=== PATIENT | female | born 1980 | race Hispanic/Latino ===

== ENCOUNTER 2021-09-28 10:00 | Outpatient (CLI) | payer OTHER, SELFPAY ==
--- NOTE | 2021-09-28 10:30 | ECG_ITS ---
Measurements Intervals [place] Rate: 70 P: 45 AL: 121 QRS: 39 QRSD: 95 T: 26 QT: 382 QTc: 413 Interpretive Statements SINUS RHYTHM NO PREVIOUS ECG AVAILABLE FOR COMPARISON Electronically Signed On 09-28-2021 11:21:48 CDT by River Duran M.D.
== END 2021-09-28 10:01 | disposition home or self-care (01) ==
PROVIDERS: PCP Nurse Practitioner Family; Visit Provider Surgery Plastic and Reconstructive Surgery
DX: Z01.810 Encounter for preprocedural cardiovascular examination (principal); L57.4 Cutis laxa senilis
CPT/HCPCS: 36415; 93005

== ENCOUNTER 2021-09-30 01:39 | Day surgery (SDC) | payer OTHER, SELFPAY ==
[2021-09-27 14:28] VITALS: BMI 32.4
--- NOTE | 2021-09-27 14:37 | PC.NURSE ---
Report to the Outpatient Waiting Room, entrance under the green pavilion located off [facility], at time _0600_ on date _[id number]_. OR Time: _0730_. - You and your visitor will be asked a series of questions to screen for COVID 19 for your protection. - Only one visitor is allowed at this time. - The patient visitor is requested to leave or wait in car when not with patient. - A mask is required within the hospital. Patients may have clear liquids (water, carbonated beverages, clear teas, apple juice) until 3 hours prior to surgery with a maximum of 20 ounces. - No food from midnight until time of surgery Take the following medications with a SIP of water the morning of surgery: __None Medications to discontinue per physician Date to take last dose None Please no make-up, nail urdu, hairspray, perfume, deodorant, or body powder the day of surgery. No jewelry (including any body piercings) or valuables the day of surgery, leave them at home. Please take a shower or bath the night before, or the morning of, surgery with an antibacterial soap. Wear comfortable, loose fitting clothing. Children are encouraged to wear pajamas. - Jewelry must be removed prior to entering the operating room. Rings and piercings that are not removed may be cut off. - The hospital will not accept responsibility for valuables. - Please leave all valuables, including medications, at home the day of surgery. If you are going home after surgery, a licensed school bus driver/mechanic must drive you home. - NO public transportation without another adult. - We recommend that an adult stay with you for 24 hours following discharge. - We also recommend that you do not drive, make important decision, drink alcoholic beverages, or take any drugs that were not prescribed by your health care provider for at least 24 hours after your discharge time. Follow any additional instructions given to you from your surgeon. If you or anyone in your household have experienced Covid symptoms in the past week, please notify your surgeon or the nurse liaison at the phone number below for possible testing. Telephone instructions given to __Patient and asked if any additional questions and then verbalized understanding. Patient advised to call surgeon office or pre surgery nurse liaison [phone] if any additional questions.
--- NOTE | 2021-09-29 14:14 | P.PNAN_ITS ---
Anes - Initial Pre Proc Eval Procedure: Operation Date: 09/30/21 07:30 Proposed Procedures p Abdominoplasty, - Giovanny Oneill MD s Liposuction Abdomen and Bilateral Flanks - Giovanny Oneill MD Date/Time: 09/29/21 14:14 Surgeon: Giovanny Oneill MD Pre Op Diagnosis: skin laxity, localized adiposity Patient Data Age: 40 Gender: F Height: 1.6 m Weight: 83.1 kg Allergies Allergy/AdvReac Type Severity Reaction Status Date / Time No Known Allergies Allergy Unverified 09/30/21 06:59 Home Medications Medication Instructions Recorded Confirmed Type norgestimate-ethinyl estradiol 1 tab-cap PO DAILY 02/17/21 09/30/21 History [Melanie] sertraline 50 mg tablet 50 mg PO DAILY 02/17/21 09/30/21 History docusate sodium 100 mg capsule 100 mg PO DAILY #14 caps 09/08/21 09/30/21 Rx (Colace) ondansetron HCl 4 mg tablet 4 mg PO Q8H #21 tabs 09/08/21 09/30/21 Rx carisoprodol 350 mg tablet (Soma) 350 mg PO TID PRN muscle pain #21 09/09/21 09/30/21 Rx tabs oxycodone-acetaminophen 5 mg-325 1 tablet PO Q6H PRN pain #30 tabs 09/09/21 09/30/21 Rx mg tablet (Percocet) certolizumab pegol 400 mg/2 mL 1 ea subcut [id number] 09/30/21 09/30/21 History (200 mg/mL x2) subcutaneous syringe kit (Cimzia) Patient hx anesthesia problems: none Family hx anesthesia problems: none Results Review: All pre-operative results and documents have been reviewed as part of the pre- operative evaluation. [facility] Family History Family History Other Diabetes mellitus Social History Social History Smoking status: Unknown if ever smoked Alcohol intake: never Substance use: never Living arrangements: with family Spiritual care concerns: No Anes - Eval Final PreProcedure Day of Procedure 09/29/21 14:14 Patient weight: obese Heart: regular rate and rhythm Lungs: clear to auscultation Airway: Mallampati scale class III Neurological: alert and oriented Last oral intake: >/= 8 hours ASA classification: II Emergent: no Anesthetic plan: proceed Anesthesia type and monitoring: general ETT and standard monitoring Results Review: All pre-operative results and documents have been reviewed as part of the pre- operative evaluation. Informed Consent: The patient's anesthetic plan and its attendant risks and benefits were discussed with the patient/family/POA. Questions were solicited and answers provided to the satisfaction of the patient/family/POA.
[2021-09-30] VITALS (12 sets, daily range): BP systolic 100–125; BP diastolic 67–82; PULSE 75–100; RESP 12–20; TEMP 35.9–37.1; O2SAT 93–100
--- NOTE | 2021-09-30 06:14 | W.PM.PROC2 ---
Procedure Note - Detailed Date of Procedure 09/30/21 Pre-op Diagnosis skin laxity, localized adiposity Post-op Diagnosis Same Procedure Performed Progressive tension abdominoplasty with suction lipectomy Surgeon Giovanny Oneill MD Anesthesia General Findings Tissue removed: 3214 grams Lipoapsirate: 3,000 cc Description of Procedure They are here today for abdominoplasty. Previously and again today the risks, benefits, alternatives were discussed in extensive detail. I wanted them to be very realistic about the risks involved as well as expectations. We discussed aftercare and what to monitor for. I was very upfront about the risks of wound breakdown leading to loss of skin, open wounds, and need for additional procedures with permanent abdominal deformity. We discussed DVT/PE risks and management. Made sure answered all of their questions to their satisfaction today and consent was obtained. They were marked in the preoperative holding area with their verification. The patient was taken to the operating room placed supine on the operating table. Anesthesia was provided by anesthesiology. A Escobar catheter was started. They were prepped and draped in a standard sterile fashion. A surgical time-out was taken. I placed the patient in a flexed position to verify the upper and lower markings would reach. I then placed supine. A thorough abdominal examination was completed. Stab incisions were made and tumescent solution infiltrated. A 5mm basket cannula was utilized for suction lipectomy based on [employer] principal in multiple planes and passes based on pre-operative planning, intraoperative observation, and rolling pinch test. Patient was supine and bilateral lateral decubitus position during this procedure. Care was taken to protect the patient during the turning which was completed sterile with 360 prep as above. A 10 blade was used to make the upper incision. I continued dissection down to the level of fascia. Elevated just what was necessary for repair of the diastasis. I then again flexed the bed to verify the upper skin flap would reach the lower markings without tension. Once verified I placed her supine once again and a 10 blade used to make the lower incision. I elevated up to level the umbilicus and left the umbilicus intact on a well-vascularized stalk. The intervening tissue was removed. A 2 mm blunt cannula with 0.5% bupivicaine was injected deep to the fascia bilaterally. I plicated the diastasis recti using 0 PDO stratafix barbed suture. This was in 2 separate layers using 2 separate sutures as well. I repaired around the umbilicus leaving plenty of room for well-vascularized stalk of the umbilicus with 2-0 PDS. I also repaired lateral to the rectus using two layers of 0 PDO stratafix. The patient was flexed and starting from superior to inferior began plication using 2-0 Vicryl to obliterate all space in a standard progressive tension fashion. At the umbilicus I marked out the location of the skin and inset this with 3-0 Monocryl and 4-0 Vicryl. I continued the remainder of the plication using 2-0 Vicryl until I reached my lower planned scar line. I trimmed any excess skin of the upper flap making sure this was a tension-free closure. I then approximated using a 3 point suture with 2-0 Vicryl followed by 3-0 stratafix ,running subcuticular 4-0 Monocryl, and tissue glue. Fluffs and an abdominal binder were placed. The patient was transferred to the bed in a flexed position. Awoken and taken to the PACU without difficulty. All instrument and sponge counts were correct at the end of the case. Estimated Blood Loss 75 Drains No Packing No Pathology None sent Complications No immediate complications Condition Stable Disposition PACU
[2021-09-30 06:43] LABS: Urine Cotinine NEGATIVE
[2021-09-30] MEDS: SCOPOLAMINE 1.5 MG PATCH TRANSDERM (06:47)
[2021-09-30] MEDS: LACTATED RINGERS 1,000 ML 30 ML IV CONT ×2 (06:47→11:46)
[2021-09-30 06:54] LABS: Hematocrit 36.9 % (37.0-47.0); Hemoglobin 12.1 g/dL (12.0-15.0)
--- NOTE | 2021-09-30 07:19 | WPDHPUPDATE1 ---
History and Physical Update Update Date/Time: 09/30/21 07:19 History and Physical has been reviewed, including an updated exam of the patient. There are NO changes in the patient's condition. Risks, benefits, and alternatives have been discussed and questions answered. Patient agrees to proceed with procedure.
[2021-09-30] MEDS: ceFAZolin 2 GM/D5W 50 ML 2 GM/50 ML BAG IVPB (07:32)
[2021-09-30] MEDS: TRANEXAMIC ACID 1,000MG/ISO100 1,000 MG/100 ML BAG 200 MG IVPB (07:35)
[2021-09-30] MEDS: LACTATED RINGERS IRRIG 1,000 ML, LIDOCAINE HCL 1% LOCAL INJ 50 ML, EPINEPHrine HCL INJ ... INFILTRATE (08:35)
[2021-09-30] MEDS: fentaNYL CITRATE INJ (*CRX) 100 MCG/2 ML VIAL 25 MCG IV PUSH ×4 (12:13→13:23)
--- NOTE | 2021-09-30 13:55 | ADMGEN ---
This patient, Nicky Oropeza, was admitted to OB 2nd Floor Room 286-00. Patient/family oriented to hospital policies and general routines including ID bracelet, bed and alarms, visiting hours, pain management, procedures, bathroom and other care routines, personal items, smoking policy, room service/diet, and visiting hours. Information on how to activate the Rapid Response Team has been discussed. Patient/Family are encouraged to report perceived risks to care and to ask questions if they do not understand what they are told or what they should do.
[2021-09-30] MEDS: LACTATED RINGERS 1,000 ML 125 ML IV CONT (14:46)
[2021-09-30] MEDS: MORPHINE SULFATE (*CRX) 2 MG/ML INJ IV PUSH ×2 (14:53→22:59)
[2021-09-30] MEDS: ENOXAPARIN 40 MG/0.4 ML SYRINGE SUB-Q (17:36)
[2021-09-30] MEDS: carisoprodoL (*CRX) 350 MG TABLET PO ×2 (17:36→22:59)
[2021-09-30] MEDS: oxyCODONE/ACETAMINOPHEN (*CRX) 5-325 MG TABLET PO ×2 (18:34→21:41)
[2021-09-30] MEDS: DOCUSATE SODIUM 100 MG CAPSULE PO (21:38)
[2021-09-30] MEDS: SERTRALINE HCL 50 MG TABLET PO (21:38)
[2021-10-01] MEDS: oxyCODONE/ACETAMINOPHEN (*CRX) 5-325 MG TABLET PO ×3 (02:45→10:26)
[2021-10-01 05:30] VITALS: BP 109/71; PULSE 85; RESP 16; TEMP 36.4
[2021-10-01] MEDS: carisoprodoL (*CRX) 350 MG TABLET PO ×2 (05:31→13:00)
--- NOTE | 2021-10-01 06:58 | WPDPN ---
Progress Note: A&P Assessment and Plan (1) Skin laxity: Code(s): L57.4 - Cutis laxa senilis Status: Acute Assessment and Plan: She is doing well after progressive tension abdominoplasty with abdominal and flank suction lipectomy. Will discharge home. Today we had a lengthy discussion about the care. We discussed what monitor for. Discussed activity limitations. The importance ambulation. We discussed what is a medical emergency and went to proceed to the ER. She understands she can call with all other questions at any time. We will see her back. (2) Localized adiposity: Code(s): E65 - Localized adiposity Status: Acute Subjective Date/time seen: 10/01/21 06:38 Interval history: She is doing well after progressive tension abdominoplasty with suction lipectomy. She has tolerated some food. Minimal ambulation. Pain controlled. No shortness of breath. No chest pain. No calf tenderness. Review of Systems Review of Systems: All systems reviewed & are unremarkable except as noted in HPI and below Exam Narrative: Alert and oriented No obvious distress Respiratory and labor Abdomen soft. No signs of infection. No hematoma. No seroma. Good color and capillary refill. No calf tenderness. Negative Homans. Objective Data Vital Signs Vital Signs: Vital Signs - 24 hr 09/30/21 11:46 09/30/21 12:00 09/30/21 12:15 Temperature 35.9 C L 36.0 C L 36.2 C L Pulse Rate 82 82 78 Respiratory Rate 14 15 16 Blood Pressure 100/69 106/72 Pulse Oximetry 100 100 100 Oxygen Delivery Simple Face Mask Simple Face Mask Simple Face Mask Oxygen Flow Rate 8 8 8 09/30/21 12:30 09/30/21 12:45 09/30/21 13:00 Temperature 36.3 C L 36.2 C L 36.4 C L Pulse Rate 78 75 89 Respiratory Rate 12 16 18 Blood Pressure 109/67 107/67 112/75 Pulse Oximetry 95 95 95 Oxygen Delivery Room Air Room Air Room Air Oxygen Flow Rate 09/30/21 13:15 09/30/21 13:30 09/30/21 13:45 Temperature Pulse Rate 80 80 88 Respiratory Rate 16 14 20 Blood Pressure 102/74 102/74 104/73 Pulse Oximetry 95 94 93 Oxygen Delivery Room Air Room Air Room Air Oxygen Flow Rate 09/30/21 14:05 09/30/21 14:00 09/30/21 18:30 Temperature 37.1 C 36.6 C Pulse Rate 100 90 Respiratory Rate 16 16 Blood Pressure 125/82 113/75 Pulse Oximetry 96 Oxygen Delivery Room Air Oxygen Flow Rate 10/01/21 05:30 Temperature 36.4 C Pulse Rate 85 Respiratory Rate 16 Blood Pressure 109/71 Pulse Oximetry Oxygen Delivery Oxygen Flow Rate Intake/Output Intake/Output: Intake & Output 09/28/21 09/29/21 09/30/21 10/01/21 23:59 23:59 23:59 23:59 Intake Total 720 1000 Output Total 1430 1700 Balance -710 -700 Meds/Results Medications: Active Medications Generic Name Dose Route Start Last Admin Trade Name Freq PRN Reason Stop Dose Admin Carisoprodol 350 mg 09/30/21 18:00 10/01/21 05:31 Carisoprodol (*Crx) 350 Mg Tablet PO 350 mg Q6HR ALYSA Administration Diazepam 5 mg 09/30/21 11:37 Diazepam (*Crx) 5 Mg Tablet PO TID PRN Anxiety Docusate Sodium 100 mg 09/30/21 21:00 09/30/21 21:38 Docusate Sodium 100 Mg Capsule PO 100 mg Q12HR ALYSA Administration Enoxaparin Sodium 40 mg 09/30/21 18:00 09/30/21 17:36 Enoxaparin 40 Mg/0.4 Ml Syringe SUB-Q 40 mg QPM ALYSA Administration Lactated Ringer's 1,000 mls @ 125 mls/hr 09/30/21 11:40 09/30/21 14:46 Lr - Lactated Ringers Iv IV CONT 125 mls/hr .Q8H ALYSA Administration Morphine Sulfate 2 mg 09/30/21 11:37 09/30/21 22:59 Morphine Sulfate (*Crx) 2 Mg/Ml Inj IV PUSH 2 mg Q2H PRN Administration Pain Ondansetron HCl 4 mg 09/30/21 11:37 Ondansetron Inj 4 Mg/2 Ml Vial IV PUSH Q6H PRN Nausea Oxycodone/Acetaminophen 1 - 2 tablet 09/30/21 11:37 10/01/21 05:32 Oxycodone/Acetaminophen (*Crx) 5-325 Mg Tablet PO 1 tablet Q6H PRN Administration Pain Sertrali
--- NOTE | 2021-10-01 07:01 | PM.DS ---
DS: Admitting Diagnosis Discharge Date 10/01/2021 Admitting Diagnosis Skin laxity Localized adiposity DS: Discharge Diagnosis Discharge Diagnosis (1) Skin laxity: Code(s): L57.4 - Cutis laxa senilis Status: Acute (2) Localized adiposity: Code(s): E65 - Localized adiposity Status: Acute DS: Summary Hospital Course Hospital Course: She underwent progressive tension abdominoplasty with suction lipectomy of abdomen and flank. Kept overnight for pain control. Postoperatively she has done well. Pain controlled. Tolerating diet. Some ambulation. Will plan for discharge home later today. Time Spent with Patient Time attestation: Total time spent providing and/or coordinating discharge services: Exam Narrative: Alert and oriented No obvious distress Respiratory and labor Abdomen soft. No signs of infection. No hematoma. No seroma. Good color and capillary refill. No calf tenderness. Negative Homans. Discharge Plan Discharge Patient Disposition: Home, Self-Care Discharge Instructions: POST OPERATIVE DISCHARGE INSTRUCTIONS GIOVANNY ONEILL M.D. [facility] [place] [address] [address] for 24 hours after anesthesia and while you are taking pain medication. Take all prescribed medication as directed Diet as tolerated. No lifting or activity that raises blood pressure for 48 hours. Regular walking / ambulation. May shower 24 hours after surgery. Once you shower do not take pain medication before showering as the combination of medication and heat may cause you to feel dizzy or pass out. No pools or tubs for 2 weeks. Slowly stand up straight as tolerated. No straining or lifting more than 20 pounds. Call with any questions or concerns. Dressing Care: Continue abdominal binder / foam 23 hours per day. If you have any questions or concerns, please call the office . If it is after hours you will be directed to the [employer] operator [employer] exchange. Shortness of breath, chest pain, or other medical emergency dial 911 / proceed to the Emergency Room. Stand Alone Forms: General Discharge Instructions Follow-up/Referrals: Giovanny Oneill MD [Physician] - 1 Week Discharge Medications: Continued sertraline 50 mg tablet 50 mg PO DAILY norgestimate-ethinyl estradiol [Melanie] 1 tab-cap PO DAILY docusate sodium [Colace] 100 mg capsule 100 mg PO DAILY Qty: 14 0RF ondansetron HCl 4 mg tablet 4 mg PO Q8H Qty: 21 0RF carisoprodol [Soma] 350 mg tablet 350 mg PO TID PRN (Reason: muscle pain) Qty: 21 0RF oxycodone-acetaminophen [Percocet] 5-325 mg tablet 1 tablet PO Q6H PRN (Reason: pain) Qty: 30 0RF Cimzia 400 mg/2 mL (200 mg/mL x 2) syringe kit 1 ea SUBCUT [id number]
--- NOTE | 2021-10-01 07:59 | WPDANESPN ---
Anes - Prog Note Post-Op Date/Time: 10/01/21 07:59 Cardiovascular status: normal Respiratory status: normal Airway patency: baseline Mental status: baseline Post-Op hydration status: normal Vital Signs: Last Vital Signs Temp 36.4 C 10/01/21 05:30 Pulse 85 10/01/21 05:30 Resp 16 10/01/21 05:30 BP 109/71 10/01/21 05:30 Pulse Ox 96 09/30/21 14:05 O2 Del Method Room Air 09/30/21 14:00 O2 Flow Rate 8 09/30/21 12:15 Pain Score (VAS): 3 I/O: Intake & Output 09/30/21 09/30/21 10/01/21 15:59 23:59 07:59 Intake Total 668 679 0157 Output Total 230 1200 1700 Balance 270 -980 -700 Laboratory Tests 09/30/21 06:40 Post-procedural complaints: none Patient Feedback: Patient satisfied with anesthetic care.
[2021-10-01 08:00] VITALS: PULSE 78; RESP 16; O2SAT 95
[2021-10-01 08:20] VITALS: BP 88/58; PULSE 78; RESP 16; TEMP 36.1; O2SAT 95
[2021-10-01] MEDS: DOCUSATE SODIUM 100 MG CAPSULE PO (10:27)
[2021-10-01 10:52] VITALS: BP 99/65; PULSE 67; RESP 14; O2SAT 98
== END 2021-10-01 14:45 | disposition home or self-care (01) ==
LOC: ANHSURGERY 06:17 → ANHOB2 14:11
PROVIDERS: PCP Nurse Practitioner Family; Visit Provider Surgery Plastic and Reconstructive Surgery
PROC: (CPT 15830; principal; 2021-09-30 07:30)
PROC: (CPT 15877; 2021-09-30 07:30)
DX: Z41.1 Encounter for cosmetic surgery (principal); L57.4 Cutis laxa senilis; M62.08 Separation of muscle (nontraumatic), other site; E65 Localized adiposity; E66.9 Obesity, unspecified; Z68.33 Body mass index [BMI] 33.0-33.9, adult; Z79.899 Other long term (current) drug therapy
CPT/HCPCS: 15830; 15847; 15877; 80307; 85014; 85018; 99199; A9270; J0171; J0690; J1100; J1170; J1650; J2250; J2270; J2405; J2704; J3010; J7120

== ENCOUNTER 2021-10-11 15:47 | Outpatient (CLI) | payer BC, SELFPAY ==
--- NOTE | ~2021-10-11 | US_ITS ---
EXAMINATION:US venous doppler LE RT INDICATION:Right leg pain TECHNIQUE: Multiple grayscale, color flow and Doppler images of the right lower extremity deep venous systems were obtained and reviewed. COMPARISON:No prior studies for comparison. FINDINGS: The common femoral, superficial femoral and popliteal veins demonstrate normal respiratory variation, augmentation and compressibility. Color flow is also seen within the posterior tibial, pe roneal, greater saphenous and profunda veins. IMPRESSION: 1: No lower extremity deep venous thrombosis. Reviewed, dictated and finalized at location A.
== END 2021-10-11 15:48 | disposition home or self-care (01) ==
PROVIDERS: PCP Nurse Practitioner Family; Visit Provider Surgery Plastic and Reconstructive Surgery
DX: M79.661 Pain in right lower leg (principal)
CPT/HCPCS: 93971